=== PATIENT | male | born 1955 | race Two or more races ===

== ENCOUNTER 2024-06-14 17:34 | Emergency (ER) | payer MEDICARE, MEDICAID ==
[~2024-06-14] VITALS: Ht 175.3 cm; Wt 94.0 kg
[2024-06-14 17:38] VITALS: O2SAT 97
[2024-06-14 18:06] LABS: BASOPHILS % 1.4 % (0.0-2.0); EOSINOPHILS % 2.5 % (0.0-5.0); HEMATOCRIT. 42.1 % (42.0-52.0); LYMPHOCYTES % 16.5 % (20.0-50.0); MEAN CORPUSCULAR HEMOGLOBIN 27.8 pg (28.0-32.0); MEAN CORPUSCULAR HGB CONC 33.3 g/dL (31.0-37.0); MEAN CORPUSCULAR VOLUME 83.3 fL (80.0-94.0); MEAN PLATELET VOLUME 7.8 fl (7.4-10.4); MONOCYTES % 7.8 % (2.0-8.0); NEUTROPHILS % 71.8 % (40.0-76.0); PLATELET 152 x1000/uL (130-400); RED BLOOD CELL COUNT 5.05 mill/uL (4.7-6.1); RED CELL DISTRIBUTION WIDTH 15.2 % (11.6-14.6); WHITE BLOOD COUNT 5.9 x1000/uL (4.5-11.0)
[2024-06-14 18:12] LABS: CARBON DIOXIDE 30 mEq/L (21-32); CHLORIDE 108 mEq/L (98-107); POTASSIUM 3.7 mEq/L (3.5-5.1); SODIUM 144 mEq/L (136-145)
[2024-06-14 18:15] LABS: PROTHROMBIN TIME 11.2 sec (9.6-11.0)
[2024-06-14 18:17] LABS: CREATININE 0.8 mg/dL (0.6-1.3); GLUCOSE 143 mg/dL (70-105)
[2024-06-14 18:18] LABS: UREA NITROGEN BLOOD 15 mg/dL (9-23)
[2024-06-14 18:20] LABS: TROPONIN I HIGH SENSITIVITY 6 ng/L (3.0-53)
[2024-06-14 22:31] VITALS: BP 150/65; PULSE 65; RESP 18; TEMP 36.89184; O2SAT 99
[2024-06-14 23:36] LABS: TROPONIN I HIGH SENSITIVITY 6 ng/L (3.0-53)
== END 2024-06-15 00:39 | disposition home or self-care (01) ==
LOC: ER 17:34
DX: I11.0 Hypertensive heart disease with heart failure (principal); R07.89 Other chest pain; I50.9 Heart failure, unspecified; E78.5 Hyperlipidemia, unspecified
CPT/HCPCS: 36415; 71045; 80048; 83880; 84484; 85025; 93005; 99285